=== PATIENT | male | born 1985 | race Caucasian/White ===

== ENCOUNTER 2022-10-07 12:56 | Emergency (ER) | payer BC, SELFPAY ==
--- NOTE | ~2022-10-07 | XR_ITS ---
XR wrist RT min 3V DATE: 10/07/2022 13:30 INDICATION: Fall off of ladder. Right wrist pain. TECHNIQUE: 4 views COMPARISON: None FINDINGS: There is a nondisplaced linear intra-articular fracture of the distal radius. No other frac ture or dislocation or other significant abnormality. IMPRESSION: Nondisplaced linear intra-articular fracture of distal radius Reviewed, dictated and finalized at [facility]. 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
--- NOTE | ~2022-10-07 | CT_ITS ---
EXAMINATION: CT facial bones wo con DATE: 10/07/2022 13:45 INDICATION: Fall off of ladder. Facial injury. Pain around nose. TECHNIQUE: Computed tomography (CT) of the facial bones and maxillofacial region was performed withou t intravenous contrast. Automated exposure control and iterative reconstruction technique were employ ed. Exam dose: 352.75 mGy-cm total exam DLP. COMPARISON: None. FINDINGS: There is minimally displaced fracture of the nasal bones. The anterior maxillary spine is intact. The frontozygomatic sutures, orbital witt and rims, maxillary bones and mandible are intact, without evidence of fracture. Normal alignment at the temporomandibular joints. Normal development and aeration of the paranasal sinuses and included mastoid air cells. IMPRESSION: Minimally displaced l nasal bone fracture Reviewed, dictated and finalized at [facility]. Reviewed, dictated and finalized at location [facility]. 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
--- NOTE | ~2022-10-07 | CT_ITS ---
EXAMINATION: CT cervical spine wo con DATE: 10/07/2022 13:29 INDICATION: Fall from ladder. Neck injury, stiffness TECHNIQUE: Computed tomography (CT) of the cervical spine was performed without intravenous contrast. Automated exposure control and iterative reconstruction technique were employed. Exam dose: 365.41 mGy-cm total exam DLP. COMPARISON: None FINDINGS: There is mild reversal cervical curvature which may be due to positioning and/or muscle spa sm. C1 and C2 are normally aligned and the odontoid process is intact. No fracture or dislocation or locked facet or prevertebral soft tissue swelling. Mild loss of height and minimal spurring at C3-4 consistent with mild degenerative disc disease.. IMPRESSION: Reversal cervical curvature which may be due to muscle spasm; no fracture or dislocation or locked facet Minimal degenerative change Reviewed, dictated and finalized at [facility]. Reviewed, dictated and finalized at location [facility]. UCTION FINISHER IMPRESSION: Reversal cervical curvature which may be due to muscle spasm; no f racture or dislocation or locked facet Minimal degenerative change
[2022-10-07 12:56] VITALS: BP 156/96; PULSE 63; RESP 20; TEMP 36.5; O2SAT 98
--- NOTE | 2022-10-07 13:06 | ED.FALL ---
HPI - Fall General Chief Complaint: Fall Stated Complaint: fell off ladder Time Seen by Provider: 10/07/22 13:06 Source: patient and RN notes reviewed Mode of arrival: ambulatory Limitations: no limitations History of Present Illness complaint: fall Onset (ago): minute(s) (40) Fall from: from height (distance) (5 feet off a ladder) Fall witnessed: no Place fall occurred: home Loss of consciousness: none Symptoms prior to fall: none Context: tripped/slipped ( ladder became unsteady and he fell) Location of injury: face (nose) Location of injury - extremities: Left: forearm (wrist) Severity: mild Quality: dull and aching Associated symptoms (after fall): denies Related Data Home Medications Medication Instructions Recorded Confirmed fexofenadine-pseudoephedrine ER 1 tablet PO DAILY 10/07/22 10/07/22 180 mg-240 mg tablet,ext.release 24 hr ([facility]ia-D 24 Hour) Review of Systems Review of Systems: All systems reviewed & are unremarkable except as noted in HPI and below PMFSH Past Medical History Medical History (Updated 10/07/22 @ 14:26 by Lul Perez MD) Seasonal allergies Surgical History Surgical History (Updated 10/07/22 @ 13:17 by Lul Perez MD) No pertinent past surgical history Social History Social History (Updated 10/07/22 @ 13:17 by Lul Perez MD) Smoking status: Never smoker Alcohol intake: never Substance use: never Exam Const: General: healthy appearing, no acute distress and alert Nutritional Appearance: well nourished Orientation/consciousness: patient oriented x3 Limitations: no limitations HENMT: Head: normal to inspection, normocephalic and atraumatic Ears: external ears normal and TM's normal bilaterally Face/Nose/Sinus: Abnormal external nose present nasal abrasion ( right side of nose) and nasal tenderness; no nasal deviation and no epistaxis Mouth: Yes moist mucous membranes Eyes: Conjunctivae: conjunctivae normal Pupils: Equal, round and reactive pupils present EOM: EOMs intact bilaterally Neck: Neck: normal visual inspection Resp: Effort & Inspection: normal respiratory effort Auscultation: clear to auscultation bilaterally Cardio: Rate: regular rate Rhythm: regular rhythm GI: GI Palp: Yes Soft to palpation and No Tenderness to palpation present (GI) Auscultation: normal bowel sounds Back/Spine/Pelvis: Cervical Spine: cervical ROM normal, collar present ( cleared at 1:10 p.m.), No cervical muscular tenderness and No pain with cervical ROM Thoracic/Lumbar Spine: thoraco-lumbar ROM normal Skin: General skin exam: normal color Neuro: General: patient oriented x3, moves all extremities, no focal motor deficits and CN's II-XI intact bilaterally Speech: normal speech Gait exam (Neuro): Normal gait present Other: GCS-15 Extrem: General: normal exam except as noted Right upper extremity: elbow/forearm abrasion forearm proximal anterior multiple and wrist tenderness of the distal radius and abnormal ROM pain with active ROM during with extension and with flexion and pain with passive ROM during with extension and with flexion Psych: Mental Status: mental status grossly normal Affect: normal affect Attitude: cooperative Course Vital Signs Vital signs: Vital Signs Temperature 36.5 C 10/07/22 12:56 Pulse Rate 63 10/07/22 12:56 Respiratory Rate 20 10/07/22 12:56 Blood Pressure 156/96 H 10/07/22 12:56 Pulse Oximetry 98 10/07/22 12:56 Oxygen Delivery Room Air 10/07/22 12:56 Temperature 37.2 C 10/07/22 14:33 Pulse Rate 68 10/07/22 14:33 Respiratory Rate 18 10/07/22 14:33 Blood Pressure 142/90 H 10/07/22 14:33 Pulse Oximetry 98 10/07/22 14:33 Oxygen Delivery Room Air 10/07/22 14:33 Procedures Orthopedic Splinting/Casting Injury #1: Splinting/Casting Date: 10/07/22 Side: right Upper Extremity Injury Location: wrist OCL: sugar tong Pre-Procedure Neuro Vascula
--- NOTE | 2022-10-07 14:20 | PC.NURSE ---
1310 c collar off per dr banks.
[2022-10-07 14:33] VITALS: BP 142/90; PULSE 68; RESP 18; TEMP 37.2; O2SAT 98
== END 2022-10-07 14:37 | disposition home or self-care (01) ==
PROVIDERS: Emergency Provider Emergency Medicine
DX: S62.101A Fracture of unspecified carpal bone, right wrist, initial encounter for closed fracture (principal); S02.2XXA Fracture of nasal bones, initial encounter for closed fracture; W11.XXXA Fall on and from ladder, initial encounter
CPT/HCPCS: 29125; 70486; 72125; 73110; 99284; A4565; L0150